=== PATIENT | male | born 1980 | race Caucasian/White ===

== ENCOUNTER 2025-01-27 07:09 | Emergency (ER) | payer SELFPAY ==
[~2025-01-27] VITALS: Ht 182.8 cm; Wt 88.5 kg
[2025-01-27] MEDS ORDERED: SODIUM CHLORIDE 0.9% 1,000 ML IV ONE (07:30)
[2025-01-27] MEDS ORDERED: Ondansetron Hydrochloride 4 MG/2 ML VIAL IV ONE (07:30)
[2025-01-27 08:18] LABS: BASO # 0.0 10*3/uL (0.0-0.1); BASO % 0.7 % (0.0-1.0); EOS # 0.3 10*3/uL (0.0-0.4); EOS % 5.2 % (1.0-4.0); MEAN CELL VOLUME 90.9 fl (80.0-94.0); MEAN CORPUSCULAR HGB 31.9 pg (27.0-31.0); MEAN PLATELET VOLUME 9.5 fl (9.6-12.3); MONO # 0.5 10*3/uL (0.1-1.0); MONO % 7.9 % (3.0-9.0); NEUT # 2.8 10*3/uL (2.3-7.9); NEUT % 47.2 % (47.0-73.0); NUCLEATED RED BLOOD CELL 0.0 % (0.0-0.0); NUCLEATED RED BLOOD CELL 0.0 10*3/uL (0.0-0.0); PLATELET COUNT AUTOMATED 215 10*3/uL (130-400); RED CELL DISTRI WIDTH 11.9 % (0-14.5)
[2025-01-27 08:35] LABS: BUN 18 mg/dl (9-23)
[2025-01-27] MEDS ORDERED: Metoclopramide Hydrochloride 10 MG/2 ML VIAL IV ONE (09:00)
[2025-01-27] MEDS ORDERED: diphenhydrAMINE hydrochloride 50 MG/ML VIAL IV ONE (09:00)
[2025-01-27] MEDS ORDERED: Ondansetron4 MG PO (10:07)
[2025-01-27] MEDS ORDERED: MELOXICAM15 MG PO (10:07)
[2025-01-27] MEDS ORDERED: CIPRO500 MG PO (10:07)
[2025-01-27] MEDS ORDERED: FLOMAX0.4 MG PO (10:07)
[2025-01-27 10:23] LABS: BILIRUBIN Negative (Negative); BLOOD Negative (Negative); CLARITY Clear (Clear); COLOR Yellow (Yellow); KETONE Trace (Negative); LEUKO ESTERASE Negative (Negative); NITRITE Negative (Negative); PH 6.5 (4.5-8.0); SPECIFIC GRAVITY 1.020 (1.001-1.030); UROBILINOGEN 0.2 E.U./dl (0.0-1.0)
[2025-01-27 10:40] LABS: BACTERIA TRACE; EPITHELIAL CELLS 0-2; MUCOUS TRACE
== END 2025-01-27 11:00 | disposition home or self-care (01) ==
LOC: ED 07:09
PROVIDERS: Internal Medicine
DX: N20.0 Calculus of kidney (principal); Z88.2 Allergy status to sulfonamides